=== PATIENT | female | born 1945 ===

== ENCOUNTER 2023-03-09 12:50 | Outpatient (CLI) | payer OTHER ==
[~2023-03-09 12:50] MED LIST: AMLODIPINE BESYL5 MG PO; CILOSTAZOL50 MG PO; HUMALOG100 U/ML SQ; HYDROCHLOROTH12.5 M1 PO; IBESARTAN PO; METOPROLOL SUC100 MG PO; NABUMETONE500 MG PO; NEURONTIN300 MG PO; PERCOCET 5/3251 TAB PO; PLAVIX75 MG PO; PLETAL PO; SYNTHROID50 MCG PO; ZOCOR20 MG PO
== END 2023-03-09 12:57 | disposition home or self-care (01) ==
LOC: RAD 12:50
PROVIDERS: ATTEND Orthopaedic Surgery
DX: M25.561 Pain in right knee (principal); M25.562 Pain in left knee; R07.9 Chest pain, unspecified

== ENCOUNTER 2023-04-05 11:15 | Inpatient (IN) | payer OTHER ==
[~2023-04-05] VITALS: Ht 154.9 cm; Wt 85.3 kg
[2023-04-05] MEDS ORDERED: OZEMPIC0.25 MG/02 (14:03)
[2023-04-05] MEDS ORDERED: VALSARTAN160 MG (14:03)
[2023-04-12] MEDS ORDERED: CEFAZOLIN SODIUM 1,000 MG VIAL ONE (11:43)
[2023-04-12] MEDS ORDERED: OxyCODONE HCL/APAP UD (PERCOCET) PO PRN (12:15)
[2023-04-12] MEDS ORDERED: ONDANSETRON HCL 2 MG/ML VIAL IV PRN (12:15)
[2023-04-12] MEDS ORDERED: TRANEXAMIC ACID 100MG/1ML (1000MG) AMPUL IV ONE ×3 (12:22→14:00)
[2023-04-12] MEDS ORDERED: KETOROLAC TROMETHAMINE 60 MG VIAL IM ONE ×2 (12:23→13:30)
[2023-04-12] MEDS ORDERED: CEFAZOLIN SODIUM 1,000 MG VIAL IV ONE (13:30)
[2023-04-12] MEDS ORDERED: MORPHINE SULFATE 4 MG/ML VIAL IV ONE (13:30)
[2023-04-12] MEDS ORDERED: MORPHINE SULFATE 4 MG/ML CARTRIDGE IV SCH (18:00)
[2023-04-12] MEDS ORDERED: CEFAZOLIN SODIUM 1,000 MG VIAL IV SCH (18:00)
[2023-04-12] MEDS ORDERED: ORPHENADRINE CITRATE 100 MG TABLET PO SCH (21:00)
[2023-04-12] MEDS ORDERED: GABAPENTIN 100 MG CAPSULE PO SCH (21:00)
[2023-04-13 01:32] LABS: HEMATOCRIT 33.7 % (36.0-45.00); MEAN CORPUSCULAR HGB CONC 34.2 g/dl (32.0-36.0); PLATELET COUNT 213 K/uL (150-450); RED BLOOD COUNT 3.67 M/uL (4.00-6.00); RED CELL DISTRIBUTION WIDTH 14.5 % (11.5-14.5)
[2023-04-13 01:56] LABS: HEMOGLOBIN 11.6 g/dL (12.0-15.00); MEAN CORPUSCULAR HEMOGLOBIN 31.6 pg (27.00-32.0)
[2023-04-13] MEDS ORDERED: ENOXAPARIN SODIUM 30 MG/0.3 ML SYRINGE SUBCUTANEO SCH (09:00)
[2023-04-13] MEDS ORDERED: SOD FERRIC GLUC COMPLX/SUCROSE 62.5 MG/5 ML AMPUL IV SCH (14:12)
[2023-04-13] MEDS ORDERED: Cyanocobalamin/Mecobalamin 1 TAB.SL SL SCH (14:12)
[2023-04-13] MEDS ORDERED: VITAMIN B COMPLEX 1 EACH PO SCH (17:00)
[2023-04-14 02:20] LABS: HEMATOCRIT 33.9 % (36.0-45.00); HEMOGLOBIN 11.5 g/dL (12.0-15.00); MEAN CELL VOLUME 92.2 fL (80.00-100.00); MEAN CORPUSCULAR HEMOGLOBIN 31.2 pg (27.00-32.0); MEAN CORPUSCULAR HGB CONC 33.9 g/dl (32.0-36.0); PLATELET COUNT 214 K/uL (150-450); RED BLOOD COUNT 3.67 M/uL (4.00-6.00); RED CELL DISTRIBUTION WIDTH 14.6 % (11.5-14.5)
[2023-04-14] MEDS ORDERED: LEVOTHYROXINE SODIUM 50 MCG TABLET PO SCH (06:00)
[2023-04-14] MEDS ORDERED: METOPROLOL SUCCINATE 100 MG TAB.SR.24H PO SCH (09:00)
== END 2023-04-14 16:46 | disposition home health service (06) | DRG 470 ==
LOC: O/R 04-12 06:31 → OB/GYN 04-12 06:31 → SURH 04-12 14:07 → OB/GYN 04-12 14:07
PROVIDERS: ADMIT Orthopaedic Surgery; ATTEND Orthopaedic Surgery
PROC: 0SRD0JZ Replacement of Left Knee Joint with Synthetic Substitute, Open Approach (ICD-10-PCS; principal; 2023-04-12 14:45)
DX: M17.12 Unilateral primary osteoarthritis, left knee (principal); D62 Acute posthemorrhagic anemia; I10 Essential (primary) hypertension